=== PATIENT | male | born 1980 | race Caucasian/White ===

== ENCOUNTER 2020-10-25 08:53 | Emergency (ER) | payer MEDICAID ==
[~2020-10-25] VITALS: Ht 170.2 cm; Wt 65.9 kg
[~2020-10-25 08:53] MED LIST: LEVE500T53 PO
[2020-10-25 08:59] VITALS: BP 125/92
== END 2020-10-25 09:51 | disposition home or self-care (01) ==
LOC: EMS 08:56
DX: F10.10 Alcohol abuse, uncomplicated (principal); F17.210 Nicotine dependence, cigarettes, uncomplicated; Z76.0 Encounter for issue of repeat prescription
CPT/HCPCS: 99283; Z7502